=== PATIENT | female | born 1990 | race African-American/Black ===

== ENCOUNTER 2017-05-19 10:23 | Emergency (ER) | payer SELFPAY ==
[2017-05-19 10:35] VITALS: BP 114/73
--- NOTE | 2017-05-19 10:54 | ER Document Report ---
ED Medical Screen (RME) - General TRAVEL OUTSIDE OF THE [place] IN LAST 30 DAYS: No - General Chief Complaint: Abdominal Pain Stated Complaint: HEADACHES, ABDOMINAL PAIN Time Seen by Provider: 05/19/17 10:49 Notes: 27-year-old female patient complains of left lower quadrant abdominal cramping for just over 1 week. She reports a whitish vaginal discharge started a few days ago and is heavy enough that she needs to wear panty liners. Complains of a mid forehead headache for the past 3 days. She does have the Mirena IUD, last menstrual period was in February and she gets periods about every 3 months. I have greeted and performed a rapid initial assessment of this patient. A comprehensive ED assessment and evaluation of the patient, analysis of test results and completion of the medical decision making process will be conducted by additional ED providers. (EMILIE DE LA FUENTE) - Related Data Allergies/Adverse Reactions: No Known Allergies Allergy (Verified 06/04/11 21:06) Past Medical History - Social History Chew tobacco use (# tins/day): No Frequency of alcohol use: None Drug Abuse: None Renal/ Medical History: Denies: Hx Peritoneal Dialysis Past Surgical History: Reports: Hx Breast Surgery - augmentation, Hx Genitourinary Surgery - abortions x2 - Immunizations Hx Diphtheria, Pertussis, Tetanus Vaccination: Yes - Vital signs Vitals: Temp Pulse Resp BP Pulse Ox 98.7 F 73 18 114/73 100 05/19/17 10:33 05/19/17 10:33 05/19/17 10:33 05/19/17 10:33 05/19/17 10:33 - Vital Signs Vital signs: Temp Pulse Resp BP Pulse Ox 98.7 F 73 18 114/73 100 05/19/17 10:33 05/19/17 10:33 05/19/17 10:33 05/19/17 10:33 05/19/17 10:33 - Laboratory Laboratory results interpreted by me: 05/19/17 10:55 Urine Urobilinogen 2.0 H Doctor's Discharge - Discharge Clinical Impression: Vaginal discharge, Abdominal cramping Condition: Stable Disposition: HOME, SELF-CARE Additional Instructions: Your urine results did not reveal any acute evidence of infection of your urine or urinary tract Your test is negative You have been treated for possible gonorrhea and chlamydia and trichomonas but you also had been tested for it as well, please follow-up with your results in 24-48 hours You might receive a letter from us about your abnormal results in a week or 2 Come back if you have worsening fevers, chills, nausea vomiting, vaginal discharge or bleeding Follow-up with APPLICATION SUPPORT DEVELOPER doctors, please see Dr. Moon, information provided Referrals: ANGEL MOON MD [ACTIVE STAFF] - Follow up in 1 week
[2017-05-19 11:22] LABS: APPEARANCE,URINE CLEAR; BILIRUBIN,URINE NEGATIVE (NEGATIVE); COLOR,URINE YELLOW; GLUCOSE, URINE NEGATIVE (NEGATIVE); KETONES,URINE NEGATIVE (NEGATIVE); LEUKOCYTE ESTERASE,URINE NEGATIVE (NEGATIVE); NITRITE,URINE NEGATIVE (NEGATIVE); PROTEIN,URINE NEGATIVE (NEGATIVE); URINE SPECIFIC GRAVITY 1.019
--- NOTE | 2017-05-19 12:15 | ER Document Report ---
ED GI/ - General Chief Complaint: Abdominal Pain Stated Complaint: HEADACHES, ABDOMINAL PAIN Time Seen by Provider: 05/19/17 10:49 Mode of Arrival: Ambulatory Information source: Patient TRAVEL OUTSIDE OF THE [place] IN LAST 30 DAYS: No - HPI Notes: 05/19/17 12:11 27-year-old lady with no significant past medical history who presented today for evaluation of lower abdominal cramping as well as headaches. Her abdominal pain is generalized with localizing to lower quadrants of her abdomen, achy, nonradiating, severity of symptoms as 4 out of 10. Additionally patient reported vaginal discharge associated with her symptoms. Patient has IUD but appears to be late on her cycle. Patient's last menstrual period was in February. Patient took test at home and was negative. Patient denies any fevers, chills, nausea or vomiting. Patient is sexually active with one partner. Additionally patient reported mild headaches, generalized, no radiation, no associated symptoms such as ataxia, double vision, focal upper or lower extremity weakness. - Related Data Allergies/Adverse Reactions: No Known Allergies Allergy (Verified 06/04/11 21:06) Past Medical History - Social History Smoking Status: Current Every Day Smoker Chew tobacco use (# tins/day): No Frequency of alcohol use: None Drug Abuse: None Family History: None, Reviewed & Not Pertinent Patient has suicidal ideation: No Patient has homicidal ideation: No Renal/ Medical History: Denies: Hx Peritoneal Dialysis Past Surgical History: Reports: Hx Breast Surgery - augmentation, Hx Genitourinary Surgery - abortions x2 - Immunizations Hx Diphtheria, Pertussis, Tetanus Vaccination: Yes Review of Systems - Review of Systems Notes: REVIEW OF SYSTEMS: CONSTITUTIONAL: -fevers, -chills EENT: -eye pain, -difficulty swallowing, -nasal congestion CARDIOVASCULAR: -chest pain, -syncope. RESPIRATORY: -cough, -SOB GASTROINTESTINAL: + Abdominal pain, -nausea, -vomiting, -diarrhea GENITOURINARY: -dysuria, -hematuria, negative sign vaginal bleeding, + vaginal discharge MUSCULOSKELETAL: -back pain, -neck pain SKIN: -rash or skin lesions. HEMATOLOGIC: -easy bruising or bleeding. LYMPHATIC: -swollen, enlarged glands. NEUROLOGICAL: -altered mental status or loss of consciousness, -headache, - neurologic symptoms PSYCHIATRIC: -anxiety, -depression. ALL OTHER SYSTEMS REVIEWED AND NEGATIVE. Physical Exam - Vital signs Vitals: Temp Pulse Resp BP Pulse Ox 98.7 F 73 18 114/73 100 05/19/17 10:33 05/19/17 10:33 05/19/17 10:33 05/19/17 10:33 05/19/17 10:33 - Notes Notes: Reviewed vital signs and nursing note as charted by RN. CONSTITUTIONAL: Alert and oriented and responds appropriately to questions HEAD: Normocephali EYES: PERRL; Conjunctivae clear, sclerae non-icteric ENT: normal nose NECK: Supple CARD: Regular rate and rhythm; no murmurs, no clicks, no rubs, no gallops; symmetric distal pulses RESP: Normal chest excursion without splinting or tachypnea; breath sounds clear and equal bilaterally ABD/GI: Normal bowel sounds; non-distended; soft, nontender Pelvic exam: Exam was performed with female subcontract administrator, normal external genitalia , endovaginal examination with notable IUD strings, patient has mild cervicitis with purulent discharge as well as CMT tenderness BACK: The back appears normal and is non-tender to palpation EXT: Normal ROM in all joints; non-tender to palpation; no cyanosis, no effusions, no edema SKIN: Normal color for age and race; warm; dry; good turgor; capillary refill < 2 seconds; no acute lesions noted NEURO: .Cranial nerves 3-12 intact. Motor strength 5/5 bilaterally PSYCH: The patient's mood and manner are appropriate. Grooming and personal hygiene are appropriate. Course - Re-evaluation Re-evalutation: 05/19/17 12:14 27-year-old here for evaluation of abdominal pain as well as headache Abdominal pain associated with vaginal discharge, differential diagnosis at this time includes acute cystitis, pyelonephritis, , bacterial vaginosis, sexual transmitted infection such as gonorrhea or chlamydia, ectopic Will obtain urinalysis, urine test as well as urine gonorrhea and chlamydia probe We will perform pelvic with wet prep Headache seems to be non-concerning, no obvious focal neurological deficits, therefore no need for further neuroimaging Recommended patient to take Tylenol and Motrin for headaches 05/19/17 12:31 Urinalysis without any acute cystitis, patient is not today Examination concerning for possible PID, will treat patient with Rocephin as well as azithromycin 1 g and Flagyl 2 g Patient will follow up with BLOOD BANK TECHNICIAN, information provided for further reassessment of her symptoms as well as possible IUD removal if patient has persistent pain and discharge Patient agree with disposition planning, discharge home Patient was given strict precautions to come back if her symptoms are not improving, she develops worsening fevers or chills, nausea vomiting, back pain - Vital Signs Vital signs: Temp Pulse Resp BP Pulse Ox 98.7 F 73 18 114/73 100 05/19/17 10:33 05/19/17 10:33 05/19/17 10:33 05/19/17 10:33 05/19/17 10:33 - Laboratory Laboratory results interpreted by me: 05/19/17 10:55 Urine Urobilinogen 2.0 H Discharge - Discharge Clinical Impression: Vaginal discharge, Abdominal cramping Condition: Stable Disposition: HOME, SELF-CARE Additional Instructions: Your urine results did not reveal any acute evidence of infection of your urine or urinary tract Your test is negative You have been treated for possible gonorrhea and chlamydia and trichomonas but you also had been tested for it as well, please follow-up with your results in 24-48 hours You might receive a letter from us about your abnormal results in a week or 2 Come back if you have worsening fevers, chills, nausea vomiting, vaginal discharge or bleeding Follow-up with BLOOD BANK TECHNICIAN doctors, please see Dr. Moon, information provided Referrals: ANGEL MOON MD [ACTIVE STAFF] - Follow up in 1 week
[2017-05-19] MEDS ORDERED: CEFTRIAXONE INJ 250 MG VIAL IM ONE (12:29)
[2017-05-19] MEDS ORDERED: AZITHROMYCIN 1 GM SUSP PACKET PO ONE (12:30)
[2017-05-19] MEDS ORDERED: METRONIDAZOLE 500 MG TABLET PO ONE (12:30)
[2017-05-19 12:36] LABS: BACTERIA (WET MOUNT) 4+ BACTERIA SEEN; EPITHELIALS (WET MOUNT) 3+ EPITHELIALS SEEN; T.VAGINALIS (WET MOUNT) TRICHOMONAS SEEN; WBCS (WET MOUNT) 3+ WBCS SEEN; YEAST (WET MOUNT) NO YEAST SEEN
[2017-05-19 12:50] LABS: CHLAM PCR NOT DETECTED (NOT DETECT); GON PCR NOT DETECTED (NOT DETECT)
== END 2017-05-19 13:02 | disposition home or self-care (01) ==
LOC: ER 10:23
DX: A59.01 Trichomonal vulvovaginitis (principal); R51 Headache; R10.30 Lower abdominal pain, unspecified; R10.31 Right lower quadrant pain; R10.32 Left lower quadrant pain; N89.8 Other specified noninflammatory disorders of vagina; F17.200 Nicotine dependence, unspecified, uncomplicated
CPT/HCPCS: 99284; 96372; 87210; 81025; 81001; 87491; 87591; Q0144; J0696